=== PATIENT | female | born 1965 | race Caucasian/White ===

== ENCOUNTER 2016-11-30 13:16 | Emergency (ER) | payer BC ==
[2016-11-30 14:02] VITALS: BP 139/80
--- NOTE | 2016-11-30 14:24 | UC ---
Respiratory Complaint HPI - HPI Summary HPI Summary: Worsing cough with chest burning for the past 5-7 days - History of Current Complaint Chief Complaint: UCRespiratory Stated Complaint: RESPIRATORY Time Seen by Provider: 11/30/16 13:54 Hx Obtained From: Patient ?: No Onset/Duration: Gradual Onset, Lasting Days - 5-7 Timing: Constant Severity Initially: Mild Severity Currently: Moderate Pain Intensity: 7 Pain Scale Used: 0-10 Numeric Character: Cough: Productive Aggravating Factors: Deep Breaths, Recumbent Position Alleviating Factors: Bronchodilator Associated Signs And Symptoms: Positive: Pleuritic Chest Pain, URI - Allergies/Home Medications Allergies/Adverse Reactions: Allergies Allergy/AdvReac Type Severity Reaction Status Date / Time Bupropion [From Wellbutrin] Allergy Rash And Verified 11/30/16 14:03 Itching Morphine Allergy Rash Verified 11/30/16 14:03 Nitrofurantoin Allergy Rash Verified 11/30/16 14:03 [From Macrodantin] Vancomycin Allergy Itching Verified 11/30/16 14:03 Home Medications: Home Medications Hydroxychloroquine TAB* [Plaquenil TAB*] 200 mg PO BID 11/30/16 [History Confirmed 11/30/16] Metformin/Glipizide 1 tab PO BID 11/30/16 [History Confirmed 11/30/16] Methotrexate TAB* 7.5 mg PO WEEKLY 11/30/16 [History Confirmed 11/30/16] metFORMIN* [Glucophage 500 MG TAB *] 500 mg PO BEDTIME 11/30/16 [History Confirmed 11/30/16] PMH/Surg Hx/FS Hx/Imm Hx Previously Healthy: No Endocrine History: Diabetes, Dyslipidemia Cardiovascular History: Hypertension - Surgical History Surgical History: Yes Surgery Procedure, Year, and Place: VINI BREAST REDUCTION, 1995, [facility] [place]. ABDOMINOPLASTY, [facility] [place], 2007. LEFT KNEE, 2000, [facility]. LEFT SHOULDER, 2004, [facility]. SKIN GRAFT X2 FROM [facility], [facility]. LEFT RING FINGER - I&D - Mar. BLADDER SLING- [place]- 2011. RIGHT SHOULDER NOV 2014. hysterectomy 03/30 - Family History Known Family History: Positive: None - Social History Occupation: Employed Full-time Lives: With Family Alcohol Use: Weekly Alcohol Amount: 4-5 BEERS ON SATURDAY Substance Use Type: None Smoking Status (MU): Light Every Day Tobacco Smoker Amount Used/How Often: 1/2 PPD X 2 YEARS Have You Smoked in the Last Year: Yes Review of Systems Constitutional: Negative Skin: Negative Eyes: Negative ENT: Negative Respiratory: Cough Cardiovascular: Chest Pain Gastrointestinal: Negative Genitourinary: Negative Motor: Negative Neurovascular: Negative Musculoskeletal: Negative Neurological: Negative Psychological: Negative Is Patient Immunocompromised?: Yes - methotrexate All Other Systems Reviewed And Are Negative: Yes Physical Exam Triage Information Reviewed: Yes Appearance: Well-Appearing, No Pain Distress, Well-Nourished Vital Signs: Initial Vital Signs Temp 98.4 F 11/30/16 13:53 Pulse 82 11/30/16 13:53 Resp 16 11/30/16 13:53 BP 139/80 11/30/16 13:53 Pulse Ox 98 11/30/16 13:53 Vital Signs Reviewed: Yes Eye Exam: Normal Eyes: Positive: Conjunctiva Clear ENT Exam: Normal ENT: Positive: Normal ENT inspection, Hearing grossly normal, Pharynx normal, TMs normal. Negative: Nasal congestion, Nasal drainage, Trismus, Muffled/ hoarse voice Dental Exam: Normal Neck exam: Normal Neck: Positive: Supple, Nontender Respiratory Exam: Normal Respiratory: Positive: Chest non-tender, Lungs clear, Normal breath sounds, No respiratory distress, No accessory muscle use Cardiovascular Exam: Normal Cardiovascular: Positive: RRR, No Murmur, Pulses Normal, Brisk Capillary Refill Musculoskeletal Exam: Normal Musculoskeletal: Positive: Strength Intact, ROM Intact, No Edema Neurological Exam: Normal Neurological: Positive: Alert, Muscle Tone Normal Psychological Exam: Normal Skin Exam: Normal UC Diagnostic Evaluation - Laboratory O2 Sat by Pulse Oximetry: 98 Respiratory Course/Dx - Course Course Of Treatment: zithromax, aerochamber with albuterol, increase fluids, follow with pcp prn - Differential Dx/Diagnosis Provider Diagnoses: Bronchitis Discharge - Discharge Plan Condition: Stable Disposition: HOME Prescriptions: Albuterol HFA INHALER* [Ventolin HFA Inhaler*] 2 puff INH Q4H PRN #1 mdi PRN Reason: Cough Azithromycin TAB* [Zithromax TAB (Z-JAIRO) 250 mg #6 tabs] 2 tab PO .TODAY, THEN 1 DAILY #1 jairo Patient Education Materials: Acute Bronchitis (ED), How to Use a Metered-Dose Inhaler and a Spacer (ED) Referrals: Nancy Morales MD [Primary Care Provider] - If Needed
== END 2016-11-30 14:32 | disposition home or self-care (01) ==
LOC: UCCORT 13:16
DX: J40 Bronchitis, not specified as acute or chronic (principal); E11.9 Type 2 diabetes mellitus without complications; E78.5 Hyperlipidemia, unspecified; I10 Essential (primary) hypertension; F17.210 Nicotine dependence, cigarettes, uncomplicated
CPT/HCPCS: 99212; G0463